=== PATIENT | male | born 1985 | race Caucasian/White ===

== ENCOUNTER 2019-08-16 14:56 | Emergency (ER) | payer SELFPAY ==
--- NOTE | ~2019-08-16 | XR_ITS ---
XR hand RT min 3V 08/16/2019 16:54 INDICATION: Right fourth finger laceration PROCEDURE: 3 views right hand COMPARISON: No prior studies for comparison. FINDINGS: Fracture, dislocation or subluxation is not identified. The soft tissues appear within norm al limits. No foreign bodies are identified. IMPRESSION: 1: NO ACUTE BONE OR JOINT ABNORMALITY IDENTIFIED. Reviewed, dictated and finalized at location A.
[2019-08-16 15:02] VITALS: BP 148/72; PULSE 110; RESP 15; TEMP 36.2; O2SAT 98
--- NOTE | 2019-08-16 16:42 | ED.WOUNDLAC ---
HPI - Wound/Laceration General Chief Complaint: Wound/Laceration Stated Complaint: hand lac Time Seen by Provider: 08/16/19 15:16 Source: patient Mode of arrival: ambulatory Limitations: no limitations History of Present Illness HPI narrative: This is a 34 year old male that presents to the ER for laceration to the right hand sustained just prior to arrival. Reports he was cut with a hot box spotter. Reports bleeding is under control. Unsure of his last tetanus vaccine. Denies decreased ROM or numbness. Related Data Allergies Allergy/AdvReac Type Severity Reaction Status Date / Time Penicillins Allergy Unknown Unknown Verified 08/16/19 17:07 Review of Systems Review of Systems: Narrative: CONSTITUTIONAL: Denies fever SKIN: Reports laceration MUSCULOSKELETAL: Denies joint pain, or myalgia. NEUROLOGIC: Denies numbness All systems reviewed & are unremarkable except as noted in HPI and below PMFSH Past Medical History Medical History (Updated 08/16/19 @ 17:43 by Malinda Lorenzo PA-C) No active medical problems Surgical History Surgical History (Updated 08/16/19 @ 17:40 by Malinda Lorenzo PA-C) History of inguinal hernia repair Social History Social History Gender identity (if verbalized by the patient): Male Exam Narrative: Exam Narrative: GENERAL: Well-appearing, well-nourished, and in no acute distress. HEAD: Normocephalic, atraumatic. EYES: EOMI. EXTREMITIES: Normal range of motion. No edema. 1.5 cm linear laceration into subcutaneous tissue over left fourth MCP joint. Normal sensation SKIN: Warm, dry, no rash. NEURO: No focal deficits. Alert and oriented x3. PSYCH: Normal mood and affect Course Vital Signs Vital signs: Vital Signs Temperature 97.2 F L 08/16/19 15:02 Pulse Rate 110 H 08/16/19 15:02 Respiratory Rate 15 08/16/19 15:02 Blood Pressure 148/72 H 08/16/19 15:02 Pulse Oximetry 98 08/16/19 15:02 Temperature 97.2 F L 08/16/19 15:02 Pulse Rate 110 H 08/16/19 15:02 Respiratory Rate 15 08/16/19 15:02 Blood Pressure 148/72 H 08/16/19 15:02 Pulse Oximetry 98 08/16/19 15:02 Procedures Laceration Laceration 1: Date: 08/16/19 Time: 17:41 Site: upper extremity Side (If applicable): left Size (cm): 1.5 Description: linear Depth: simple, single layer Local Anesthetic: lidocaine 1% and with epi Amount of anesthesia used (mL): 2 Pre-repair: irrigated ====== Skin Level ====== Skin layer closed with: nylon Size (cm): 5-0 Number of sutures: 3 Technique: simple, interrupted ====== Subcutaneous Layer ====== ====== Muscle Layer ====== ====== Tendon Layer ====== Dressing: Antibiotic ointment, Telfa, Kerlix and Coban MDM - Wound/Laceration MDM Narrative Medical decision making narrative: Patient presents to the emergency department for laceration to the left hand sustained just prior to arrival. Patient was updated on tetanus. Wound was irrigated and closed with sutures. Left hand x-rays without acute changes. Patient was educated on wound care. He is to follow-up with primary care doctor. He was given warnings to return to the ER Imaging Data Radiologist's impression: ITS Impressions Hand X-Ray 08/16/19 16:56 IMPRESSION: 1: NO ACUTE BONE OR JOINT ABNORMALITY IDENTIFIED. Critical Care Time Critical Care Time Critical Care Time: No Discharge Plan Discharge Clinical Impression: Laceration Patient Disposition: Home, Self-Care Condition: Stable Instructions: Antibiotic Form, Laceration (ED) Additional Instructions: Return to the emergency department if you experience fever, redness or swelling of your wound, abnormal drainage from your wound, or any other symptoms that are concerning to you. Take antibiotic as prescribed. Apply antibiotic ointment daily. Do not soak the wound. Clean with mild soap and water
[2019-08-16] MEDS: TETANUS,DIPHTHERIA,AC PERTUSSIS ADULT (0.5 ML) BOOSTRIX IM (17:39)
[2019-08-16 17:43] VITALS: BP 138/94; PULSE 76; RESP 16; TEMP 36.9; O2SAT 95
== END 2019-08-16 17:53 | disposition home or self-care (01) ==
PROVIDERS: Emergency Provider Emergency Medicine
DX: S61.411A Laceration without foreign body of right hand, initial encounter (principal); W27.0XXA Contact with workbench tool, initial encounter; Z23 Encounter for immunization
CPT/HCPCS: 12001; 73130; 90471; 90715; 99283

== ENCOUNTER 2020-11-18 18:05 | Emergency (ER) | payer SELFPAY ==
[2020-11-18 18:39] VITALS: BP 155/100; PULSE 85; RESP 16; TEMP 37.2; O2SAT 99
[2020-11-18 19:14] LABS: Basophils Absolute Auto 0.1 K/mm3 (0.0-0.1); Eosinophils Absolute Auto 0.2 K/mm3 (0-0.3); Eosinophils Percent Auto 2.2 % (0-4.4); Immature Granulocyte Absolute 0.02 K/mm3 (0.00-0.031); Immature Granulocyte Percent A 0.2 % (0-0.5); Lymphocytes Absolute Auto 2.08 K/mm3 (0.9-3.2); Lymphocytes Percent Auto 25.2 % (18.3-44.2); Mean Corpuscular HGB Conc 33.3 g/dl (32-36); Mean Corpuscular Hemoglobin 31.6 pg (26-34); Mean Corpuscular Volume 94.9 fl (80-100); Mean Platelet Volume 10.9 fl (7.4-10.4); Monocytes Absolute Auto 0.6 K/mm3 (0.1-0.6); Monocytes Percent Auto 7.5 % (2.6-8.5); Neutrophils Absolute Auto 5.3 K/mm3 (1.3-6.7); Neutrophils Percent Auto 63.9 % (45.5-73.1); Platelet Count Result 219 k/mm3 (150-375); Red Blood Count 4.74 M/mm3 (4.6-6.20); Red Cell Distribution Width 13.2 % (11.5-14.5); White Blood Count 8.3 K/mm3 (4.5-10.0)
[2020-11-18 19:26] LABS: Alanine Aminotransferase 22 U/L (4-50); Albumin Level 4.8 g/dL (3.5-5.1); Alkaline Phosphatase 72 U/L (38-126); Anion Gap 15 mmol/L (8-16); Aspartate Amino Transferase 30 U/L (17-59); Bilirubin,Total 0.4 mg/dL (0.2-1.3); Blood Urea Nitrogen 14 mg/dL (9-20); Calcium 9.5 mg/dL (8.4-10.2); Carbon Dioxide 27 mmol/L (22-30); Chloride 101 mmol/L (98-107); Estimated CRCL calculation 92 ml/min; Estimated Glomerular Filt Rate > 60; Glucose 104 mg/dL (65-110); Potassium 3.6 mmol/L (3.4-5.0); Sodium 143 mmol/L (137-145)
[2020-11-18 22:07] VITALS: BP 161/92; PULSE 71; RESP 16; TEMP 37.3; O2SAT 97
--- NOTE | 2020-11-18 22:55 | ED.ABDPAIN ---
HPI - Abdominal Pain General Chief Complaint: Abdominal Pain Stated Complaint: hernia x 1 year Time Seen by Provider: 11/18/20 22:01 History of Present Illness HPI narrative: Patient is a 35-year-old male who presents to the ER with groin bulge. Ongoing over the last week. Reports pain in the area over a year. He is having bowel movements but is regularly constipated. He does heavy lifting as well. No fevers or chills or sweats. No abdominal distention or nausea or vomiting. Bulge is reducible. No discomfort in his testicles. Related Data Home Medications Medication Instructions Recorded Confirmed No Home Medications 11/18/20 11/18/20 Review of Systems Review of Systems: All systems reviewed & are unremarkable except as noted in HPI and below Constitutional: Constitutional: Denies chills and Denies fever(s) Gastrointestinal: Gastrointestinal: Denies abdominal pain, Denies bloating, Reports constipation, Denies diarrhea, Denies nausea and Denies vomiting Genitourinary: Genitourinary: Denies testicular pain PMFSH Past Medical History Medical History (Updated 11/18/20 @ 23:04 by Hakeem Weems MD) No active medical problems Surgical History Surgical History (Updated 08/16/19 @ 17:40 by Malinda Lorenzo PA-C) History of inguinal hernia repair Social History Social History Gender identity (if verbalized by the patient): Male Exam Narrative: GENERAL: Well-appearing, well-nourished, and in no acute distress. HEAD: Normocephalic, atraumatic. : Normal external genitalia. Left inguinal hernia that is reducible and nontender. EXTREMITIES: Normal range of motion. No edema. SKIN: Warm, dry, no rash. NEURO: Alert and oriented x3. PSYCH: Normal mood and affect. Course Course Emergency Course: We will give general surgery referral. Discussed purchasing a hernia girdle. Also discussed using stool softeners to prevent constipation. Patient verbalized understanding of return precautions. Vital Signs Vital signs: Vital Signs Temperature 99.0 F 11/18/20 18:39 Pulse Rate 85 11/18/20 18:39 Respiratory Rate 16 11/18/20 18:39 Blood Pressure 155/100 H 11/18/20 18:39 Pulse Oximetry 99 11/18/20 18:39 Temperature 99.1 F 11/18/20 22:07 Pulse Rate 71 11/18/20 22:07 Respiratory Rate 16 11/18/20 22:07 Blood Pressure 161/92 H 11/18/20 22:07 Pulse Oximetry 97 11/18/20 22:07 MDM - Abdominal Pain Lab Data Result diagrams: 11/18/20 19:02 11/18/20 19:02 Labs: Lab Results 11/18/20 11/18/20 Range/Units 19:02 19:02 WBC 8.3 (4.5-10.0) K/mm3 RBC 4.74 (4.6-6.20) M/mm3 Hgb 15.0 (14.0-18.0) g/dL Hct 45.0 (42.0-52.0) % MCV 94.9 (80-100) fl MCH 31.6 (26-34) pg MCHC 33.3 (32-36) g/dl RDW 13.2 (11.5-14.5) % Plt Count 219 (150-375) k/mm3 MPV 10.9 H (7.4-10.4) fl Immature Gran % (Auto) 0.2 (0-0.5) % Neut % (Auto) 63.9 (45.5-73.1) % Lymph % (Auto) 25.2 (18.3-44.2) % [place] % (Auto) 7.5 (2.6-8.5) % Eos % (Auto) 2.2 (0-4.4) % Baso % (Auto) 1.0 (0.2-1.2) % Lymph # (Auto) 2.08 (0.9-3.2) K/mm3 [place] # (Auto) 0.6 (0.1-0.6) K/mm3 Eos # (Auto) 0.2 (0-0.3) K/mm3 Baso # (Auto) 0.1 (0.0-0.1) K/mm3 Abs Immat Gran (auto) 0.02 (0.00-0.031) K/mm3 Absolute Neuts (auto) 5.3 (1.3-6.7) K/mm3 Absolute Nucleated RBC 0.0 (0.0-0.012) K/mm3 Nucleated RBC % 0.0 (0.0-0.2) % Sodium 143 (137-145) mmol/L Potassium 3.6 (3.4-5.0) mmol/L Chloride 101 (98-107) mmol/L Carbon Dioxide 27 (22-30) mmol/L Anion Gap 15 (8-16) mmol/L BUN 14 (9-20) mg/dL Creatinine 0.90 (0.7-1.3) mg/dL Estim Creat Clear Calc 92 ml/min Estimated GFR > 60 (59 - ) Glucose 104 (65-110) mg/dL Calcium 9.5 (8.4-10.2) mg/dL Total Bilirubin 0.4 (0.2-1.3) mg/dL AST 30 (17-59) U/L ALT 22 (4-50) U/L Alkaline Phosphatase 72 (38-126) U/L Total Protein 8.0 (6.3-8
[2020-11-18 23:13] VITALS: BP 132/83; PULSE 60; RESP 18; O2SAT 97
== END 2020-11-18 23:16 | disposition home or self-care (01) ==
PROVIDERS: Physician Assistant Medical; Emergency Provider Emergency Medicine
DX: K40.90 Unilateral inguinal hernia, without obstruction or gangrene, not specified as recurrent (principal)
CPT/HCPCS: 36415; 80053; 85025; 99283